=== PATIENT | male | born 1985 | race Caucasian/White ===

== ENCOUNTER 2023-12-14 18:03 | Emergency (ER) | payer SELFPAY ==
[2023-12-14] MEDS ORDERED: Cyclobenzaprine 10 MG TAB ONE (19:10)
== END 2023-12-14 19:22 | disposition home or self-care (01) ==
LOC: CSHERS 18:03
DX: M25.511 Pain in right shoulder (principal); Z87.891 Personal history of nicotine dependence
CPT/HCPCS: 99283